=== PATIENT | male | born 1995 | race Caucasian/White ===

== ENCOUNTER 2016-06-19 10:08 | Emergency (ER) | payer MEDICAID ==
[2016-06-19] MEDS ORDERED: SODIUM CHLORIDE 0.9% 1,000 ML IV ONE (11:22)
[2016-06-19] MEDS ORDERED: IOPAMIDOL-300 100 ML VIAL IVP ONE (11:56)
[2016-06-19] MEDS ORDERED: AMOX/CLAV 875 MG/125 MG TABLET PO STA (13:10)
[2016-06-19] MEDS ORDERED: AMOX/CLAV 875 MG/125 MG TABLET PO ONE (13:17)
== END 2016-06-19 13:40 | disposition home or self-care (01) ==
DX: K52.9 Noninfective gastroenteritis and colitis, unspecified (principal)
CPT/HCPCS: 36415; 74177; 80053; 83690; 85025; 99283; 99284; A9270; Q9967